=== PATIENT | male | born 1940 | race African-American/Black ===

== ENCOUNTER → 2016-12-08 | Outpatient (CLI) | payer MEDICARE, OTHER ==
[~2016-12-08] MED LIST: AMLODIPINE BESYL5 MG ORAL; ASPIR 8181 MG ORAL; ASPIRIN EC81 MG ORAL; ATORVASTATIN CA20 MG ORAL; BACLOFEN10 MG ORAL; CARAFATE SUSP UD1 G1 GT; CARAFATE1 G1 ORAL; CITALOPRAM HBR20 M1 ORAL; CREON DR 24,001 EACH PO; DEXILANT60 MG ORAL; GLIMEPIRIDE1 MG ORAL; JANUVIA25 MG ORAL; LASARTAN; LOSARTAN PO; LOSARTAN POTAS100 MG ORAL; METOPROLOL TART50 M1 ORAL; ONGLYZA5 MG PO; PROTONIX40 MG ORAL; SIMETHICONE80 MG ORAL; UNISOM50 MG PO; VITAMIN D1000 UNI1 ORAL; ZOFRAN4 MG ORAL; ZOLPIDEM TARTRAT5 MG ORAL
[2016-12-08 14:05] VITALS: BP 125/71
--- NOTE | 2016-12-08 15:43 | General Progress Note ---
Assessment/Plan Problem List: (1) multiple colon polyps Assessment/Plan plan colonoscopy next month Subjective ROS Limited/Unobtainable: Yes Allergies: Coded Allergies: No Known Allergies (Unverified , 03/28/13) Subjective wt gain Objective Last 24 Hour Vital Signs Date Time Temp Pulse Resp B/P Pulse Ox O2 Delivery O2 Flow Rate FiO2 12/08/16 14:05 98.2 69 18 125/71 99 General Appearance: alert EENT: normal ENT inspection Neck: supple Cardiovascular: normal rate Respiratory/Chest: lungs clear Abdomen: normal bowel sounds, non tender, soft Extremities: non-tender ESTUARDO NASSAR Dec 08, 2016 15:43
== END | disposition home or self-care (01) ==
LOC: PAN 13:39
DX: K63.5 Polyp of colon (principal)
CPT/HCPCS: 99211

== ENCOUNTER → 2016-12-22 | Day surgery (SDC) | payer MEDICARE, OTHER ==
[~2016-12-22] VITALS: Ht 165.1 cm; Wt 71.2 kg
[2016-12-22] VITALS (7 sets, daily range): BP systolic 92–142; BP diastolic 64–84
[~2016-12-22] MED LIST changes: +LR 1000ml 1,000 ML IV SCH; +LR 1000ml 1,000 ML IVLG SCH; +Propofol 10mg/ml 20ml IV ONE; +fentaNYL 100 mcg/2 mL IV PRN
--- NOTE | 2016-12-22 12:08 | Pre-Procedure Note/Attestation ---
Pre-Procedure Note/Attestation Complete Prior to Procedure Planned Procedure: not applicable Procedure Narrative: colonoscopy Indications for Procedure Pre-Operative Diagnosis: screening Attestation I attest that I discussed the nature of the procedure; its benefits; risks and complications; and alternatives (and the risks and benefits of such alternatives ), prior to the procedure, with the patient (or the patient's legal field representatives director). I attest that, if there was a reasonable possibility of needing a blood transfusion, the patient (or the patient's legal field representatives director) was given the [facility] standardized written summary, pursuant to the [place] Blood Safety Act ([place] Health and Safety Code # 1645, as amended). I attest that I re-evaluated the patient just prior to the surgery and that there has been no change in the patient's H&P, except as documented below: ESTUARDO NASSAR Dec 22, 2016 12:08
--- NOTE | 2016-12-22 12:09 | Short Stay Surgery H&P ---
History of Present Illness History of Present Illness Chief Complaint screening HPI Homero Fuentes is a 76 year old male who was admitted on for Colon Screening Patient History Allergies: Coded Allergies: No Known Allergies (Unverified , 03/28/13) PAST MEDICAL HISTORY: (1) multiple colon polyps Past Surgeries: Social History: Medication History Scheduled Amlodipine Besylate* (Amlodipine Besylate*), 5 MG ORAL DAILY, (Reported) Aspirin Ec* (Aspirin Ec*), 81 MG ORAL DAILY, (Reported) Cholecalciferol (Vitamin D3)* (Vitamin D*), 50,000 UNIT ORAL ONCE A WEEK, ( Reported) Diphenhydramine Hcl (Unisom), 50 MG PO QHS, (Reported) Losartan Potassium (Losartan Potassium), 100 MG ORAL DAILY, (Reported) Metoprolol Tartrate* (Metoprolol Tartrate*), 25 MG ORAL DAILY, (Reported) Sitagliptin* (Januvia*), 100 MG ORAL DAILY, (Reported) Discontinued Medications Citalopram Hydrobromide* (Citalopram Hbr*), 20 MG ORAL DAILY, (Reported) Discontinued Reason: Pt stopped taking med Review of Systems Cardiovascular: Reports: no symptoms Respiratory: Reports: no symptoms Skeletal: Reports: no symptoms Gastrointestinal: Reports: no symptoms Genitourinary: Reports: no symptoms Neurologic: Reports: no symptoms Endocrine: Reports: no symptoms Hematologic: Reports: no symptoms Physical Exam Vital Signs Last Vital Signs Date Time Temp Pulse Resp B/P Pulse Ox O2 Delivery O2 Flow Rate FiO2 12/22/16 09:37 97.3 75 20 136/76 98 Room Air Skin: normal HENT: normal Heart: normal Lungs: normal Abdomen: normal Extremities: normal Plan Plan of Care colonoscopy Final Diagnosis: Attestation Are the patient's medical conditions optimized for surgery? Attestation Response: yes ESTUARDO NASSAR Dec 22, 2016 12:09
--- NOTE | 2016-12-22 12:23 | Immediate Post-Op Evaluation ---
Immediate Post-Op Evalulation Immediate Post-Op Evalulation Procedure: Colonoscopyt Date of Evaluation: Dec 22, 2016 Time of Evaluation: 12:10 IV Fluids: 400 Blood Pressure Systolic: 92 Blood Pressure Diastolic: 64 Pulse Rate: 79 Respiratory Rate: 17 O2 Sat by Pulse Oximetry: 100 Temperature (Fahrenheit): 97.2 Pain Score (1-10): 0 Nausea: No Vomiting: No Complications No complication Patient Status: awake, patent, none Hydration Status: adequate Drug: None BHASKAR LUCERO M.D. Dec 22, 2016 12:23
--- NOTE | 2016-12-22 12:23 | Anethesia Preoperative Eval ---
Anesthesia Pre-op PMH/ROS General Date of Evaluation: Dec 22, 2016 Time of Evaluation: 12:01 Anesthesiologist: Grabiel ASA Score: ASA 3 Mallampati Score Class I : Soft palate, uvula, fauces, pillars visible Class II: Soft palate, uvula, fauces visible Class III: Soft palate, base of uvula visible Class IV: Only hard plate visible Mallampati Classification: Class II Surgeon: Gaston Diagnosis: Screening Surgical Procedure: Colonoscopy Allergies: Coded Allergies: No Known Allergies (Unverified , 03/28/13) Past Medical History Cardiovascular: Reports: HTN, Denies: CAD, [place], arrhythmia, other, valve dz Pulmonary: Denies: COPD, JOSELYN, asthma, other Gastrointestinal/Genitourinary: Denies: CRI, ESRD, GERD, other Neurologic/Psychiatric: Denies: CVA, TIA, dementia, depression/anxiety, other Endocrine: Reports: DM HEENT: Denies: GRINDSTONE (L), GRINDSTONE (R), cataract (L), cataract (R), glaucoma, other Hematology/Immune: Denies: DVT, anemia, bleeding disorder, other Musculoskeletal/Integumentary: Denies: DDD, DJD, OA, RA, edema, other PMH Narrative: HTN, DM Anesthesia Pre-op Phys. Exam Physician Exam Last Vital Signs Date Time Temp Pulse Resp B/P Pulse Ox O2 Delivery O2 Flow Rate FiO2 12/22/16 09:37 97.3 75 20 136/76 98 Room Air Constitutional: NAD Neurologic: CN 2-12 intact Cardiovascular: RRR, no M/R/G Respiratory: CTA Gastrointestinal: S/NT/ND Airway Exam Mallampati Score: Class II MO: full Dentures: upper Anesthesia Pre-op A/P Risk Assessment & Plan Assessment: Screening Plan: GA, TIVA Status Change Before Surgery: No Pre-Antibiotics Drug: BHASKAR Ellington M.D. Dec 22, 2016 12:23
--- NOTE | 2016-12-22 12:28 | Endoscopy Procedure Note ---
Endoscopy Procedure Note Indication for Procedure: screening Procedures Performed: colonoscopy Operative Findings/Diagnosis: 2 polyps Specimen: yes Pt Tolerated Procedure Well: Yes Estimated Blood Loss: none Anesthesiologist: blas Anesthesia: MAC Implant(s) used?: No 50 yrs or older w/o bx or poly: No 10yrs. F/U not recommended: Yes If not recommended, why?: Above average risk 10 yrs. F/U needed: Yes 18 years or older w/prev. colo: Yes <3yrs. since last colonoscopy: No ESTUARDO NASSAR Dec 22, 2016 12:28
--- NOTE | 2016-12-22 12:37 | 48 Hour Post Anesthesia Eval ---
Post Anesthesia Evaluation Procedure: Colonoscopy Date of Evaluation: Dec 22, 2016 Time of Evaluation: 13:10 Blood Pressure Systolic: 114 0: 75 Pulse Rate: 79 Respiratory Rate: 15 O2 Sat by Pulse Oximetry: 100 Airway: patent Nausea: No Vomiting: No Pain Intensity: 0 Hydration Status: adequate Cardiopulmonary Status: Stable Mental Status/LOC: patient returned to baseline Follow-up Care/Observations: As per surgery Post-Anesthesia Complications: No anesthetic complication Follow-up care needed: N/A BHASKAR LUCERO M.D. Dec 22, 2016 12:37
--- NOTE | 2016-12-22 21:38 | Procedure Note ---
DATE OF PROCEDURE: 12/22/2016 SURGEON: Kieran Aguilar M.D. PROCEDURE: Colonoscopy with biopsy. ANESTHESIA: Per INSTRUMENT: Olympus adult flexible colonoscope. INDICATION: 1. Screening colonoscopy evaluation. 2. History of colonic polyps. REASON FOR PROCEDURE: The procedure, risks, benefits, and possible consequences, including hemorrhage, aspiration, perforation and infection, and alternative treatments, were explained to the patient/legal guardian by Dr. Kieran Aguilar and the patient/legal guardian understood and accepted these risks. DESCRIPTION OF PROCEDURE: After informed consent was obtained and the patient was adequately sedated, first rectal exam was performed, which shows positive for internal hemorrhoids. Then, the scope was advanced from the rectum into the cecum documented by appendiceal orifice, ileocecal valve, and right upper quadrant palpation. Quality of prep was very good. The patient had two polyps, one polyp was in the ascending colon and one polyp was in the transverse colon, both were small, removed with cold biopsy forceps technique. Retroflexion of rectum showed evidence of some internal hemorrhoids. There was one single diverticula in the right colon. The rest of the exam was grossly within normal limits. The patient tolerated the procedure well without any complication. SUMMARY OF FINDINGS: 1. Two colonic polyps removed, see above for details. 2. One single diverticula in the right colon. 3. Internal hemorrhoids. RECOMMENDATIONS: Follow up biopsies and treat accordingly. Kieran Aguilar M.D. DR: PEDRO JOB#: [id number] CC:
== END | disposition home or self-care (01) ==
LOC: GAS 08:16
DX: Z12.11 Encounter for screening for malignant neoplasm of colon (principal); D12.2 Benign neoplasm of ascending colon; D12.3 Benign neoplasm of transverse colon; K64.8 Other hemorrhoids; K57.30 Diverticulosis of large intestine without perforation or abscess without bleeding; I10 Essential (primary) hypertension; E11.9 Type 2 diabetes mellitus without complications; Z86.010 Personal history of colon polyps; Z79.82 Long term (current) use of aspirin
CPT/HCPCS: 45380; 82962; J2704; 94003; 94150